=== PATIENT | female | born 1965 | race Caucasian/White ===

== ENCOUNTER 2023-02-24 14:27 | Emergency (ER) | payer BC ==
[2023-02-24] MEDS ORDERED: Morphine 2 MG/ML SYRINGE IM ONE (15:57)
== END 2023-02-24 17:20 | disposition home or self-care (01) ==
LOC: JD.ED 14:27
DX: S62.625A Displaced fracture of middle phalanx of left ring finger, initial encounter for closed fracture (principal); Z88.8 Allergy status to other drugs, medicaments and biological substances; W18.30XA Fall on same level, unspecified, initial encounter; Y93.01 Activity, walking, marching and hiking
CPT/HCPCS: 26770; 73120; 73130; 99283; J2270